=== PATIENT | female | born 1940 | race Caucasian/White ===

== ENCOUNTER 2021-06-04 11:24 | Emergency (ER) | payer SELFPAY ==
--- NOTE | ~2021-06-04 | XR_ITS ---
XR lumbar spine min 4V DATE: 06/04/2021 13:45 INDICATION: Fall TECHNIQUE: AP, lateral COMPARISON: None FINDINGS: There is diffuse osteopenia. There are bilateral Steffee plates and pedicle screws at L3-L5. There is severe degenerative disc disease at L1-2. There is mild degenerative disc disease at L2-3, m oderately severe degenerative disc disease at L3-4, L4-5. Grade 1 anterolisthesis at L4-5. The sacroiliac joints are intact. Right bipolar hip prosthesis. IMPRESSION: Diffuse osteopenia Status post posterior spinal fusion at L3-L5 Multilevel degenerative disc disease, most severe at L1-2 Grade 1 anterolisthesis at L4-5 Right bipolar hip prosthesis Reviewed, dictated and finalized at location A.
--- NOTE | ~2021-06-04 | XR_ITS ---
EXAMINATION: XR hip RT min 3V w AP pelvis DATE: 06/04/2021 13:45 INDICATION: Right hip pain post fall TECHNIQUE: Anteroposterior view of the pelvis and anteroposterior, frog leg and cross-table lateral v iews of the right hip were obtained. COMPARISON: None. FINDINGS: Bipolar type right hip hemiarthroplasty with cemented femoral component appears well seated in near-a natomic alignment with no periprosthetic lucency to suggest loosening or infection. No fracture. Left hip and bilateral sacroiliac joint spaces appear relatively preserved. Partially visualized instrume nted posterior spinal fusion at L4-L5 with bilateral plates and pedicle screw fixations. Scattered mi ld vascular calcifications several of the arteries in the bilateral pelvis and proximal thighs. IMPRESSION: 1. 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 No acute osseous abnormality. Reviewed, dictated and finalized at location A.
[2021-06-04 11:40] VITALS: BP 97/50; PULSE 55; RESP 17; TEMP 36.1; O2SAT 99
[2021-06-04 11:49] VITALS: BP 97/50; PULSE 56; RESP 16; O2SAT 97
[2021-06-04 12:21] VITALS: BP 88/56; PULSE 54; RESP 17; O2SAT 98
[2021-06-04] MEDS: MORPHINE SULFATE (*CRX) 4 MG/ML INJ IV PUSH (13:21)
[2021-06-04] MEDS: ONDANSETRON INJ 4 MG/2 ML VIAL IV PUSH (13:22)
--- NOTE | 2021-06-04 14:15 | ED.FALL ---
HPI - Fall General Chief Complaint: Fall Stated Complaint: right hip & right shoulder pain/injury Time Seen by Provider: 06/04/21 13:14 Source: patient, EMS and RN notes reviewed Mode of arrival: EMS Limitations: no limitations History of Present Illness HPI Narrative: Patient is 80 years old white female tripped and fell last night landed on the right hip. Denies other injuries. History of below right knee amputation Related Data Allergies Allergy/AdvReac Type Severity Reaction Status Date / Time Sulfa (Sulfonamide Allergy Hives Verified 06/04/21 11:54 Antibiotics) Review of Systems Review of Systems: CONSTITUTIONAL: Denies fever, chills, or sweats. EYES: Denies visual changes, redness, or discharge. ENT: Denies rhinorrhea, congestion, sore throat, or otalgia. CARDIOVASCULAR: Denies chest pain, palpitations, or edema. RESPIRATORY: Denies cough or dyspnea. GASTROINTESTINAL: Denies abdominal pain, nausea, vomiting, or diarrhea. GENITOURINARY: Denies dysuria or hematuria. SKIN: Denies rash or itching. MUSCULOSKELETAL: Denies back pain, joint pain, or myalgia. NEUROLOGIC: Denies headache, numbness, or weakness. PSYCHIATRIC: Denies anxiety or depression. Exam Narrative: General appearance: Well-developed, well-nourished Skin: Normal color Head: Normocephalic, nontraumatic Eyes: Clear conjunctiva ENT: Oropharynx normal, ears normal, nose normal Neck: Supple, nontender Chest and respiratory: Airway patent, no respiratory distress, no accessory muscle use Heart: Regular rate/rhythm Abdomen: Soft, nontender, no organomegaly, quiet bowel sounds Vascular: Normal peripheral pulses, normal capillary refill. 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 Is my concern Imaging Data Radiologist's impression: Impressions Hip/Pelvis X-Ray 06/04/21 13:47 IMPRESSION: 1. 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 No acute osseous abnormality. Lumbar Spine X-Ray 06/04/21 13:50 IMPRESSION: Diffuse osteopenia Status post posterior spinal fusion at L3-L5 Multilevel degenerative disc disease, most severe at L1-2 Grade 1 anterolisthesis at L4-5 Right bipolar hip prosthesis Critical Care Time Critical Care Time Critical Care Time: No Discharge Plan Discharge Clinical Impression: Contusion of hip, right Qualifiers: Encounter type: subsequent encounter Qualified Code(s): S70.01XD - Contusion of right hip, subsequent encounter Patient Disposition: [facility] Senior Living/Asst Living Condition: Stable Instructions: Antibiotic Form, Hip Contusion (ED) Additional Instructions: Return if symptoms are worsening , call your family physician for appointment, take Tylenol as as needed for aches and pain, continue home medications. Follow-up/Referrals: Del Yu MD [Physician] - UNKNOWN,DOCTOR [Primary Care Provider] -
[2021-06-04 14:34] VITALS: BP 110/53; PULSE 57; RESP 17; O2SAT 96
== END 2021-06-04 15:00 ==
PROVIDERS: Emergency Provider Emergency Medicine
DX: S70.01XA Contusion of right hip, initial encounter (principal); Z89.511 Acquired absence of right leg below knee; Z98.1 Arthrodesis status; M51.36 Other intervertebral disc degeneration, lumbar region; M85.88 Other specified disorders of bone density and structure, other site; Z96.641 Presence of right artificial hip joint; W01.0XXA Fall on same level from slipping, tripping and stumbling without subsequent striking against object, initial encounter
CPT/HCPCS: 72110; 73502; 96374; 96375; 99284; J2270; J2405